=== PATIENT | female | born 1970 | race Caucasian/White ===

== ENCOUNTER 2020-08-02 16:31 | Emergency (ER) | payer SELFPAY ==
--- NOTE | 2020-08-02 17:53 | ER Document Report ---
ED Medical Screen (RME) - General Chief Complaint: Knee Injury Stated Complaint: RIGHT KNEE PAIN/SWELLING Time Seen by Provider: 08/02/20 17:40 Mode of Arrival: Wheelchair Information source: Patient Notes: 49-year-old female presented to ED for red inflamed swollen painful right knee. She states that 2 weeks ago she was walking down the stairs missed the last couple stairs fell landing flat on her knee causing a large laceration and injury. She does not know if she broke anything or dislocated anything at the time but she was in a hurry so she cleaned it up some and then she went to work. She states she then went to see her daughter the next day and she cleaned it up more than it was clean the first time but she still did not follow-up with any primary care or urgent care. She states she did go to an urgent care today the provider there told her that she had a very infected knee and it was probably in the joint and she needed to go to the ED to get blood work and x-rays. She does have a red swollen painful knee. It is painful to with any movement. I have ordered blood work and x-rays of the knee and she will be seen by another provider. I have greeted and performed a rapid initial assessment of this patient. A comprehensive ED assessment and evaluation of the patient, analysis of test results and completion of medical decision making process will be conducted by an additional ED providers. Physical Exam - Vital signs Vitals: Temp Pulse Resp BP Pulse Ox 99.0 F 109 H 16 163/92 H 95 08/02/20 17:18 08/02/20 17:18 08/02/20 17:18 08/02/20 17:18 08/02/20 17:18 Course - Vital Signs Vital signs: Temp Pulse Resp BP Pulse Ox 99.0 F 109 H 16 163/92 H 95 08/02/20 17:18 08/02/20 17:18 08/02/20 17:18 08/02/20 17:18 08/02/20 17:18 - Laboratory Result Diagrams: 08/02/20 18:21 08/02/20 18:21 Laboratory results interpreted by me: 08/02/20 08/02/20 18:21 18:21 WBC 13.8 H MCV 103 H MCH 35.2 H Plt Count 505 H Absolute Lymphs (auto) 5.2 H Carbon Dioxide 31 H Calcium 10.3 H
--- NOTE | 2020-08-02 18:33 | RADIOLOGY REPORT (SQ) ---
EXAM DESCRIPTION: KNEE RIGHT 4 VIEWS IMAGES COMPLETED DATE/TIME: 08/02/2020 6:11 pm REASON FOR STUDY: Injury 2 weeks ago now pain swelling infection COMPARISON: None. NUMBER OF VIEWS: Four views. TECHNIQUE: AP, lateral, and both oblique radiographic images acquired of the right knee. LIMITATIONS: None. FINDINGS: MINERALIZATION: Normal. BONES: No acute fracture or dislocation. No worrisome bone lesions. JOINT: No effusion. SOFT TISSUES: No soft tissue swelling. No radio-opaque foreign body. OTHER: No other significant finding. IMPRESSION: NEGATIVE STUDY OF THE RIGHT KNEE. NO RADIOGRAPHIC EVIDENCE OF ACUTE INJURY. TECHNICAL DOCUMENTATION: JOB ID: [id number] 2010 [employer]- All Rights Reserved Reading location - IP/workstation name: [email or web address]
[2020-08-02 18:45] LABS: ABSOLUTE BASOPHILS # (AUTO) 0.1 10^3/uL (0.0-0.2); ABSOLUTE EOSINOPHILS # (AUTO) 0.6 10^3/uL (0.0-0.6); ABSOLUTE LYMPHOCYTES (AUTO) 5.2 10^3/uL (0.5-4.7); ABSOLUTE MONOCYTES (AUTO) 0.8 10^3/uL (0.1-1.4); BASOPHILS % (AUTO) 0.9 % (0-2); EOSINOPHILS % (AUTO) 4.2 % (0-6); HEMATOCRIT 41.2 % (36.0-47.0); HEMOGLOBIN 14.1 g/dL (12.0-15.5); LYMPHOCYTES % (AUTO) 37.9 % (13-45); MEAN CORPUSCULAR HEMOGLOBIN 35.2 pg (27.0-33.4); MEAN CORPUSCULAR HGB CONC 34.1 g/dL (32.0-36.0); MEAN CORPUSCULAR VOLUME 103 fl (80-97); MONOCYTES % (AUTO) 5.8 % (3-13); PLATELET COUNT 505 10^3/uL (150-450); RED BLOOD COUNT 3.99 10^6/uL (3.72-5.28); RED CELL DISTRIBUTION WIDTH 12.2 % (11.5-14.0); SEGMENTED NEUTROPHILS % (AUTO) 51.2 % (42-78); TOTAL CELLS COUNTED % (AUTO) 100 %; WHITE BLOOD COUNT 13.8 10^3/uL (4.0-10.5)
[2020-08-02 19:04] LABS: ALBUMIN 4.5 g/dL (3.5-5.0); ALKALINE PHOSPHATASE 87 U/L (38-126); ANION GAP 9 (5-19); ASPARTATE AMINO TRANSFERASE 26 U/L (14-36); BILIRUBIN,DIRECT 0.1 mg/dL (0.0-0.4); BILIRUBIN,TOTAL 0.2 mg/dL (0.2-1.3); BLOOD UREA NITROGEN 14 mg/dL (7-20); CALCIUM 10.3 mg/dL (8.4-10.2); CARBON DIOXIDE 31 mmol/L (22-30); CHLORIDE 98 mmol/L (98-107); GLUCOSE 80 mg/dL (75-110); POTASSIUM 4.3 mmol/L (3.6-5.0); TOTAL PROTEIN 7.7 g/dL (6.3-8.2)
[2020-08-02 21:47] LABS: APPEARANCE,URINE CLEAR; BILIRUBIN,URINE NEGATIVE (NEGATIVE); COLOR,URINE STRAW; GLUCOSE, URINE NEGATIVE (NEGATIVE); KETONES,URINE NEGATIVE (NEGATIVE); LEUKOCYTE ESTERASE,URINE NEGATIVE (NEGATIVE); NITRITE,URINE NEGATIVE (NEGATIVE); PROTEIN,URINE NEGATIVE (NEGATIVE); URINE SPECIFIC GRAVITY 1.008; UROBILINOGEN,URINE NEGATIVE mg/dL (<2.0)
[2020-08-03] MEDS ORDERED: ACETAMINOPHEN 325 MG TABLET PO ONE (04:10)
[2020-08-03] MEDS ORDERED: ACETAMINOPHEN WITH CODEINE #3 TABLET PO ONE (07:29)
[2020-08-03] MEDS ORDERED: DICLOXACILLIN SODIUM 250 MG CAPSULE PO ONE (07:29)
[2020-08-03] MEDS ORDERED: LIDOCAINE 1%/EPINEPHRINE INJ 20 ML VIAL INJ ONE (07:41)
--- NOTE | 2020-08-03 08:16 | ER Document Report ---
ED General - General Chief Complaint: Knee Pain Stated Complaint: RIGHT KNEE PAIN/SWELLING Time Seen by Provider: 08/02/20 17:40 Primary Care Provider: ION CANAS MD [ACTIVE STAFF] - Follow up tomorrow ARABELLA WORKMAN MD [COMMUNITY BASED STAFF] - Follow up in 1 week Mode of Arrival: Wheelchair Notes: 49-year-old female no significant past medical history presents with approximately 2 weeks of warmth, redness, edema overlying right knee. Patient had mechanical fall onto right knee 2 weeks ago and had scraped his knee and then few days later noticed worsening redness. Patient pain became severe on day of presentation so she went to urgent care who referred her to ED. Patient denies any fever, vomiting, diabetes, HIV, immunocompromise history, pain elsewhere, recent antibiotics, change in gait, weakness or numbness - Related Data Allergies/Adverse Reactions: No Known Allergies Allergy (Unverified 08/03/20 04:16) Past Medical History - General Information source: Patient - Social History Smoking Status: Unknown if Ever Smoked Family History: Reviewed & Not Pertinent Review of Systems - Review of Systems Notes: REVIEW OF SYSTEMS: CONSTITUTIONAL : Denies fever, chills, or sweats. EENT: Denies recent cold/sinus symptoms, denies throat pain CARDIOVASCULAR: Denies chest pain, TRINI RESPIRATORY: Denies cough, denies shortness of breath. GASTROINTESTINAL: Denies abdominal pain, nausea/vomiting. GENITOURINARY: Denies difficulty urinating, painful urination. MUSCULOSKELETAL: Denies neck pain, back pain. SKIN: + rash or skin lesions. HEMATOLOGIC : Denies easy bruising or bleeding. LYMPHATIC: Denies swollen, enlarged glands. NEUROLOGICAL: Denies headache, denies change in gait. PSYCHIATRIC: Denies anxiety or stress or depression. Physical Exam - Vital signs Vitals: Temp Pulse Resp BP Pulse Ox 99.0 F 109 H 16 163/92 H 95 08/02/20 17:18 08/02/20 17:18 08/02/20 17:18 08/02/20 17:18 08/02/20 17:18 - Notes Notes: PHYSICAL EXAMINATION: GENERAL: Well-appearing, well-nourished and in no acute distress. HEAD: Atraumatic, normocephalic. EYES: Pupils equal round and appropriate constriction, sclera anicteric, conjunctiva are normal. ENT: nares patent, moist mucous membranes. NECK: Normal range of motion, supple without lymphadenopathy LUNGS: Breath sounds clear to auscultation bilaterally and equal. No wheezes rales or rhonchi. HEART: Regular rate and rhythm without murmurs ABDOMEN: Soft, nontender, no guarding, no masses, no CVAT EXTREMITIES: Normal except for approximately 8 x 8 area on medial right knee of redness, warmth, induration, patient has full range of motion of right knee, no focal bony tenderness, joint stable, no distal edema, DP pulses 2+ b/l NEUROLOGICAL: Awake, alert, conversing appropriately, moves all extremities spontaneously. PSYCH: Normal mood, normal affect. SKIN: Warm, Dry, normal turgor Course - Re-evaluation Re-evalutation: 08/03/20 08:20 Patient with area of cellulitis overlying the right knee with low suspicion for septic arthritis. Patient otherwise well, no systemic symptoms, no immunocompromise history and no risk factors for complicated course. Initially ordered lactate, but canceled this after I clinically evaluated patient. had at length discussion with patient regarding arthrocentesis which she initially declined but then accepted. Performed arthrocentesis with sterile technique after obtaining informed consent and obtained low volume of clear synovial fluid sample which was sent to lab for culture. Canceled additional labs as was not enough sample to run white count or crystals on it. Given patient's presentation will discharge on p.o. antibiotics and instructed her to [employer] number so will propel her culture results positive. Gave patient extensive return to ED precautions and warned her that if she not have improvement in symptoms in 2 days or she had any worsening symptoms after discharge that she needs to return immediately to the emergency department to be reevaluated. Informed patient that there could be injury to her soft tissues in her knee and also has some fractures cannot be seen on x-ray and that it was important that she follow-up closely with an orthopedic surgeon to determine if she needed additional imaging if her symptoms persist. Patient was in agreement with this plan and denied having any other questions or concerns. - Vital Signs Vital signs: Temp Pulse Resp BP Pulse Ox 98.1 F 93 20 138/94 H 98 08/03/20 08:42 08/03/20 08:42 08/03/20 06:03 08/03/20 08:42 08/03/20 08:42 - Laboratory Result Diagrams: 08/02/20 18:21 08/02/20 18:21 Laboratory results interpreted by me: 08/02/20 08/02/20 18:21 18:21 WBC 13.8 H MCV 103 H MCH 35.2 H Plt Count 505 H Absolute Lymphs (auto) 5.2 H Carbon Dioxide 31 H Calcium 10.3 H Procedures - Joint Aspiration Right Knee Time completed: 08:05 Consent obtained: Yes Joint aspiration pre-procedure: Sterile PPE donned, Chloraprep applied Anesthetic type: 1% Lidocaine mL's of anesthetic: 3 Needle size: 18 Amount/type of drainage: 2 Number of attempts: 1 Complications: No Discharge - Discharge Clinical Impression: Cellulitis Qualifiers: Site of cellulitis: extremity Site of cellulitis of extremity: lower extremity Laterality: right Qualified Code(s): L03.115 - Cellulitis of right lower limb Knee injury Qualifiers: Encounter type: initial encounter Laterality: right Qualified Code(s): S89.91XA - Unspecified injury of right lower leg, initial encounter Disposition: HOME, SELF-CARE Additional Instructions: You have cellulitis, and infection of the soft tissue underneath the skin. Although he had no fractures on your x-ray, is still possible that you could h ave a fracture that is not seen on x-ray or an injury to another part of your knee such as your ligaments or cartilage. That is why is important that you follow-up with the orthopedic surgeon within the next few days in order to see if you need additional imaging such as a CT scan or an MRI. It is also still possible that you could have an infection in your joint which is a risk for serious disability and/or , so it is important that you follow-up closely and follow these instructions to return back if your symptoms get worse at any point. Take all antibiotics as prescribed. If after 2 days he did not have any improvement in your symptoms or you have any worsening pain, inability to bend your leg, fever, vomiting, confusion, or any other worsening or alarming symptoms return to the emergency department immediately. Follow-up with your primary doctor within 1 week. You had a mildly elevated white blood cell count which is likely secondary to your skin infection, but you should follow this up with your primary doctor in case there is something more dangerous such as cancer. He also had several other lab abnormalities which you should discuss with your doctor. Bring the copy of your results with you when you follow-up with your primary doctor. Your blood pressure was slightly high during this visit, you should also have this rechecked by your primary doctor. Untreated high blood pressure is a risk factor for heart attack, stroke, and . Prescriptions: Ibuprofen [Ibu] 400 mg PO Q6HP PRN #15 tablet PRN Reason: For Pain Scale 2-3 Acetaminophen with Codeine [Tylenol #3 Tablet] 1 each PO Q6HP PRN #5 tablet PRN Reason: Severe Pain Forms: Return to Work Referrals: ION CANAS MD [ACTIVE STAFF] - Follow up tomorrow ARABELLA WORKMAN MD [COMMUNITY BASED STAFF] - Follow up in 1 week
[2020-08-03 09:10] VITALS: BP 138/94
== END 2020-08-03 09:05 | disposition home or self-care (01) ==
LOC: ER 16:31
DX: L03.115 Cellulitis of right lower limb (principal); S89.91XA Unspecified injury of right lower leg, initial encounter; W19.XXXA Unspecified fall, initial encounter; M25.561 Pain in right knee
CPT/HCPCS: 99284; 36415; 87040; 87205; 87070; 85025; 87075; 80053; 81001; 73564; 20610; J3490 ×2